=== PATIENT | male | born 1930 | race African-American/Black ===

== ENCOUNTER 2018-07-25 06:36 | Emergency (ER) | payer OTHER ==
[~2018-07-25] VITALS: Ht 172.7 cm; Wt 89.8 kg
[~2018-07-25 06:36] MED LIST: AMITRIPTYLINE H25 MG PO; ANTIHIPERTENSIVO; DICLOFENAC SODI50 MG PO; DOXAZOSIN MESYLA2 MG PO; DULCOLAX STOOL100 MG PO; ENALAPRIL MALEA20 MG PO; FOLIC ACID1 MG PO; MIRALAX12 EA PO; TRICOR48 MG PO; TUSSI PRES-B L120 M1 PO; VERAPAMIL HCL240 M1 PO; [UNRECOGNIZED DRUG - REMARK] PO
== END 2018-07-25 12:40 | disposition home or self-care (01) ==
LOC: ER 06:36 → CPU-OBS 06:40 → ER 12:40
DX: R07.89 Other chest pain (principal)

== ENCOUNTER 2018-08-03 13:50 | Emergency (ER) | payer OTHER ==
[~2018-08-03] VITALS: Ht 137.2 cm; Wt 122.5 kg
[2018-08-06] MEDS ORDERED: ZESTRIL10 M1 (19:28)
[2018-08-06] MEDS ORDERED: ARICEPT10 MG (19:28)
[2018-08-06] MEDS ORDERED: CARDURA XL4 MG (19:29)
[2018-08-06] MEDS ORDERED: VERAPAMIL SR240 MG (19:29)
== END 2018-08-03 16:12 | disposition home or self-care (01) ==
LOC: ER 13:50
DX: R06.02 Shortness of breath (principal)